=== PATIENT | female | born 1940 | race Caucasian/White ===

== ENCOUNTER 2019-02-10 12:41 | Emergency (ER) | payer MEDICARE ==
[~2019-02-10] VITALS: Ht 162.5 cm; Wt 57.6 kg
[2019-02-10] MEDS ORDERED: NEURONTIN300 MG PO (12:52)
[2019-02-10] MEDS ORDERED: TRAMADOL HCL50 MG PO (12:53)
== END 2019-02-10 14:27 | disposition home or self-care (01) ==
LOC: ED 12:41
DX: S92.355A Nondisplaced fracture of fifth metatarsal bone, left foot, initial encounter for closed fracture (principal); W22.03XA Walked into furniture, initial encounter; Y93.01 Activity, walking, marching and hiking; Y92.89 Other specified places as the place of occurrence of the external cause; Y99.8 Other external cause status

== ENCOUNTER 2020-02-15 10:57 | Inpatient (IN) | payer OTHER ==
[~2020-02-15] VITALS: Ht 160 cm; Wt 47.3 kg
[~2020-02-15 10:57] MED LIST: NEURONTIN300 MG PO; TRAMADOL HCL50 MG PO
[2020-02-15 11:14] VITALS: BP 114/68
[2020-02-15 11:57] LABS: BASO # 0.1 10*3/uL (0.0-0.1); BASO % 0.5 % (0.0-1.0); EOS # 0.1 10*3/uL (0.0-0.4); EOS % 0.4 % (1.0-4.0); HEMATOCRIT 35.5 % (37.0-47.0); LYMPH # 1.2 10*3/uL (1.3-4.4); LYMPH % 7.1 % (27.0-41.0); MEAN CELL VOLUME 88.8 fl (81.0-99.0); MEAN CORPUSCULAR HGB 26.5 pg (27.0-31.0); MEAN CORPUSCULAR HGB CONC 29.9 g/dl (33.0-37.0); MEAN PLATELET VOLUME 9.8 fl (9.6-12.3); MONO # 1.1 10*3/uL (0.1-1.0); MONO % 6.6 % (3.0-9.0); NEUT # 14.5 10*3/uL (2.3-7.9); NEUT % 84.9 % (47.0-73.0); PLATELET COUNT AUTOMATED 525 10*3/uL (130-400); RED CELL DISTRI WIDTH 15.1 % (0-14.5)
[2020-02-15 12:08] LABS: ACT PARTIAL THROMBO TIME 27.9 SECONDS (20.0-32.1); INTERNATIONAL NORM RATIO 1.1 (2.0-3.5)
[2020-02-15 12:13] LABS: ALBUMIN 2.5 gm/dl (3.1-4.5); ALKALINE PHOSPHATASE 97 U/L (45-117); BUN 20 mg/dl (7-24); CHLORIDE 107 mmol/L (98-107); CREATININE 1.28 mg/dL (0.55-1.02); LIPASE 127 U/L (73-393); POTASSIUM 3.9 mmol/L (3.5-5.1); SGOT/AST 10 IU/L (3-35); SGPT/ALT 14 U/L (12-78); SODIUM 136 mmol/L (136-145); TOTAL PROTEIN 7.9 gm/dL (6.4-8.2); TROPONIN I < 0.015 ng/ml (<0.045)
[2020-02-15 12:15] LABS: CPK 34 U/L (26-192)
[2020-02-15 12:17] LABS: CKMB < 1.0 ng/ml (0.5-3.6)
--- NOTE | 2020-02-15 12:36 | NUR ---
pt has attempted to URINATE WITHOUT SUCCESS. SALINE INFUSING PER ORDER. PROVIDER AWARE.
[2020-02-15 13:29] LABS: BILIRUBIN NEGATIVE (NEGATIVE); BLOOD TRACE-INTACT (NEGATIVE); CLARITY CLEAR (CLEAR); COLOR YELLOW (YELLOW); GLUCOSE NEGATIVE (NEGATIVE); KETONE NEGATIVE (NEGATIVE); LEUKO ESTERASE NEGATIVE (NEGATIVE); NITRITE NEGATIVE (NEGATIVE); UROBILINOGEN 0.2 E.U./dl (0.2-1.0)
[2020-02-15 13:30] LABS: BACTERIA 2+; MUCOUS TRACE
[2020-02-15 14:00] VITALS: BP 116/78
--- NOTE | 2020-02-15 15:05 | NUR ---
NURSE REPORT PROVIDED TO ANNA ESTEBAN, FOR CONTINUATION OF CARE. AWAITING PERFORMANCE OF CTA OF CHEST. PT HAS NO VOICED COMPLAINTS. READING A BOOK.
--- NOTE | 2020-02-15 15:28 | NUR ---
PATIENT SITTING UP IN BED EATING MEAL TRAY WITHOUT DIFFICULTY. NO VOICED COMPLAINTS AT THIS TIME. WILL CONITNUE TO MONITOR.
[2020-02-15 18:22] VITALS: BP 120/92
[2020-02-15] MEDS ORDERED: SINEMET 25-1001 EACH PO (18:27)
--- NOTE | 2020-02-15 18:30 | NUR ---
A 79, admitted to , under the services of PATRICK Bailey DO with a diagnosis of UTI, LUNG MASS. Chief complaint is FALL. Patient arrived via stretcher from ER. Monitor applied. Initial assessment completed. Vital signs taken and recorded. PATRICK BAILEY DO notified of admission to the unit. Orders received. See assessment for past medical history, medications and allergies. Patient and/or family oriented to unit. [address] visitation policy reviewed. Clothing/patient valuable form completed. SONYA HIGGINBOTHAM
--- NOTE | 2020-02-15 19:08 | NUR ---
NOTIFIED OF NEW CONSULT.
[2020-02-15 20:00] VITALS: BP 149/94
--- NOTE | 2020-02-15 20:30 | NUR ---
PATIENT AWAKE ALERT TO SELF AND PLACE ONLY. PATIENT STATES SHE KNOWS SHE IS IN THE HOSPITAL BUT ALSO STATES HER DOG, ELEANOR IS IN THE ROOM WITH HER. PATIENT SPEAKING TO HER DOG. WHILE ASSESSING PATIENT, NOTICED PATIENT SKIN TO BE VERY HOT. TEMPERATURE TAKEN ORALLY. 99.1. HR IN THE 130S AT THIS TIME. TEMPERATURE TAKEN RECTALLY. 104.6. NOTIFIED. DR. RIZO. DR. RIZO TO COME SEE PATIENT, COOLING BLANKET AND TYLENOL TO BE ORDERED.
--- NOTE | 2020-02-15 21:03 | NUR ---
DR. RIZO IN ROOM. PRN TYLENOL GIVEN AT THIS TIME. PATIENT NOW ON COOLING BLANKET WITH CONTINOUS RECTAL PROBE IN. RECTAL TEMPERATURE NOW 105. PATIENT PACKED WITH ICE PACKS WELL. HR REMAINS 130S, 140S-150S WITH EXERTION. PATIENT VERY RESTLESS AND DISORIENTED. CONTINUES TO TRY AND CLIMB OUT OF BED. PATIENT VERY WEAK WITH HX OF FALLS. DR. RIZO WANTING PATIENT TO BE A 1:1. LAW OFFICE MANAGER, RODRIGUEZ MADE AWARE. ORDER TO BE PLACED BY DR. RIZO. WILL CONTINUE TO MONITOR.
[2020-02-15 21:15] VITALS: BP 124/60
--- NOTE | 2020-02-15 22:57 | NUR ---
NOTIFIED DR. STEPHENS OF PATIENTS MOST RECENT VITALS. TEMPERATURE DOWN TO 99.2, HR NOW IN THE 90S. TYLENOL AND COOLING BLANKET EFFECTIVE. PATIENT NOW SLEEPING, RESPIRATIONS EASY, NON LABORED. SITTER IN ROOM. BED IN LOWEST POSITION, CALL LIGHT WITHIN REACH. BED ALARM ON. WILL CONTINUE TO MONITOR.
--- NOTE | 2020-02-15 23:22 | NUR ---
PATIENT TEMPERATURE 98.9. COOLING BLANKET TURNED OFF AT THIS TIME. WILL CONTINUE TO MONITOR
[2020-02-16] VITALS: BP 129/98
--- NOTE | 2020-02-16 04:49 | NUR ---
Recheck of patients temp is 97.2(oral)
[2020-02-16 07:10] LABS: BASO # 0.1 10*3/uL (0.0-0.1); BASO % 0.3 % (0.0-1.0); EOS % 0.1 % (1.0-4.0); HEMATOCRIT 35.3 % (37.0-47.0); LYMPH # 1.4 10*3/uL (1.3-4.4); LYMPH % 6.4 % (27.0-41.0); MEAN CELL VOLUME 90.3 fl (81.0-99.0); MEAN CORPUSCULAR HGB 26.3 pg (27.0-31.0); MEAN CORPUSCULAR HGB CONC 29.2 g/dl (33.0-37.0); MEAN PLATELET VOLUME 10.2 fl (9.6-12.3); MONO # 1.2 10*3/uL (0.1-1.0); MONO % 5.4 % (3.0-9.0); NEUT # 19.4 10*3/uL (2.3-7.9); PLATELET COUNT AUTOMATED 489 10*3/uL (130-400); RED BLOOD COUNT 3.91 10*6/uL (4.10-5.10); RED CELL DISTRI WIDTH 15.4 % (0-14.5); WHITE BLOOD COUNT 22.3 10*3/uL (4.8-10.8)
[2020-02-16 07:36] LABS: BUN 15 mg/dl (7-24); CHLORIDE 110 mmol/L (98-107); CHOLESTEROL 100 mg/dL (<200); CREATININE 1.03 mg/dL (0.55-1.02); HDL CHOLESTEROL 25 mg/dl (40-60); LDL CHOLESTEROL 59 mg/dL (9-159); POTASSIUM 3.9 mmol/L (3.5-5.1); SODIUM 140 mmol/L (136-145); TRIGLYCERIDES 81 mg/dl (<150); VLDL CHOLESTEROL 16 mg/dL (6-40)
[2020-02-16 07:54] LABS: VITAMIN D, 25-HYDROXY 25.5 ng/mL (30-100)
[2020-02-16 08:00] VITALS: BP 119/69
[2020-02-16 12:00] VITALS: BP 134/69
[2020-02-16 16:00] VITALS: BP 125/60
--- NOTE | 2020-02-16 18:45 | NUR ---
PT IS SCHEDULED FOR BRONCH TUESDAY ORDERRED BY DR. HAGAN. MESSAGE SENT TO SURGERY, BLOOD THINNERS HELD ORDERRED, AND NPO AFTER [place] TUESDAY NIGHT. PATIENT SIGNED CONSENT.
[2020-02-16 20:00] VITALS: BP 127/65
--- NOTE | 2020-02-16 20:36 | NUR ---
INFORMED THAT AN ORDER FOR IVF AT 100CC/HR IS STILL ACTIVE, WAS NOT INFORMED IN REPORT OF IVF. APPEARS THAT IT WAS ORDER WHEN PATIENT HAD FEVER PRIOR NIGHT AND ONLY ONE BAG WAS GIVEN. INFORMED THAT PATIENT IS EATING AND DRINKING FINE AT THSI TIME. STATED OK TO D/C IVF ORDER.
--- NOTE | 2020-02-16 20:40 | NUR ---
PATIENT MEDICATED WITH ULTRAM FOR C/O BL FEET PAIN 03/14. WILL MONITOR
[2020-02-17] VITALS: BP 130/63
[2020-02-17 06:20] LABS: BASO % 0.4 % (0.0-1.0); EOS # 0.3 10*3/uL (0.0-0.4); EOS % 2.9 % (1.0-4.0); HEMATOCRIT 31.1 % (37.0-47.0); LYMPH # 1.8 10*3/uL (1.3-4.4); MEAN CELL VOLUME 88.4 fl (81.0-99.0); MEAN CORPUSCULAR HGB 26.7 pg (27.0-31.0); MEAN CORPUSCULAR HGB CONC 30.2 g/dl (33.0-37.0); MEAN PLATELET VOLUME 10.2 fl (9.6-12.3); MONO # 0.8 10*3/uL (0.1-1.0); MONO % 8.4 % (3.0-9.0); NEUT # 6.4 10*3/uL (2.3-7.9); NEUT % 68.8 % (47.0-73.0); PLATELET COUNT AUTOMATED 465 10*3/uL (130-400); RED BLOOD COUNT 3.52 10*6/uL (4.10-5.10); RED CELL DISTRI WIDTH 15.4 % (0-14.5); WHITE BLOOD COUNT 9.3 10*3/uL (4.8-10.8)
[2020-02-17 06:40] LABS: CREATININE 1.21 mg/dL (0.55-1.02); POTASSIUM 3.8 mmol/L (3.5-5.1)
[2020-02-17 08:00] VITALS: BP 104/77
--- NOTE | 2020-02-17 08:51 | NUR ---
ULTRAM GIVEN FOR C/O BILAT FOOT PAIN DUE TO NEUROPATHY PER PT. CALL LIGHT IN REACH. WILL MONITOR.
--- NOTE | 2020-02-17 09:51 | NUR ---
ULTRAM EFFECTIVE PER PT.
[2020-02-17 12:00] VITALS: BP 121/65
--- NOTE | 2020-02-17 14:12 | NUR ---
ULTRAM GIVEN FOR C/O BILAT FEET PAIN. CALL LIGHT IN REACH. WILL MONITOR. BED ALARM ON.
--- NOTE | 2020-02-17 14:16 | NUR ---
ASSISTED TO BSC AND BACK TO BED. NOTED WEAKNESS AND POOR ENDURANCE. CALL LIGHT IN REACH. BED ALARM ON.
--- NOTE | 2020-02-17 14:47 | NUR ---
ULTRAM GIVEN FOR COMPLAINTS OF NEUROPATHIC PAIN TO BILAT FEET. CALL LIGHT IN REACH, WILL MONITOR. BED ALARM ON.
--- NOTE | 2020-02-17 14:50 | NUR ---
PER PT, ULTRAM WAS EFFECTIVE.
--- NOTE | 2020-02-17 15:43 | NUR ---
ULTRAM EFFECTIVE PER PT
[2020-02-17 16:00] VITALS: BP 118/51
[2020-02-17 20:00] VITALS: BP 131/65
--- NOTE | 2020-02-17 21:31 | NUR ---
PATIENT MEDICATED WITH ULTRAM FOR COMPLAINTS OF NEUROPATHY PAIN. WILL MONITOR FOR EFFECTIVENESS. CALL LIGHT IN REACH.
--- NOTE | 2020-02-17 23:00 | NUR ---
ULTRAM EFFECTIVE. RESTING IN BED WITH EYES CLOSED. NO SIGNS OR SYMPTOMS OF DISTRESS NOTED. CALL LIGHT IN REACH.
[2020-02-18] VITALS (11 sets, daily range): BP systolic 107–148; BP diastolic 47–83
--- NOTE | 2020-02-18 07:00 | NUR ---
ARRIVED ON SHIFT, REPORT RECEIVED FROM OFF GOING NURSE, ASSUMED CARE OF PATIENT.
--- NOTE | 2020-02-18 07:20 | NUR ---
INTRODUCED SELF TO PATIENT, BED IN LOW POSITION, WHEELLOCKS ENGAGED, SIDE RAILS UP X 2 FOR TURNING AND REPOSITIONING, BED ALARM ON, CALL LIGHT WITHIN REACH. NO NEEDS VOICED AT THIS TIME. WHITE BOARD UPDATED.
--- NOTE | 2020-02-18 07:55 | NUR ---
Shift chart check completed.
--- NOTE | 2020-02-18 08:21 | NUR ---
PHYSICAL THERAPY Screen and PT evaluation received will follow thank you Clarissa Tong PT
--- NOTE | 2020-02-18 14:53 | NUR ---
Road Worker in to talk to patient. Patient states lives at HOME with ALONE. There are NO steps in the home. Physician: PING SHORE [facility]acy: [facility] health [facility]: HAS AID THAT COMES 3 DAYS A WEEK. SHE DOES NOT KNOW COMPANY NAME Patient's level of ADLs: INDEPENDENT Patient has working utilities: YES DME: NORIS Follow-up physician's appointment after d/c: WILL BE MADE BY HOSPITALIST NURSE DIRECTOR ON DISCHARGE Does patient want to access PORTAL?: NO Discharge plan PT LIVES AT HOME ALONE AND IS INDEPENDENT IN HER CARE. ADMITS TO HAVING SOME FALLS AT HOME RECENTLY. TALKED WITH PT ABOUT GOING TO A SNF PRIOR TO RETURNING HOME BUT SHE STATES SHE WILL NOT GO. STATES I WILL NOT LEAVE MY DOG AT HOME. STATES IF YOU WANT TO GET ME PHYSICAL THERAPY AT HOME THAT WOULD BE FINE BUT I AM NOT GOING ANYWHERE. STATES SHE WILL RETURN HOME WHEN MEDICALLY STABLE. WILL CONTINUE TO FOLLOW. STATES HER DAUGHTER WILL TAKE HER HOME.. GEE FREY
--- NOTE | 2020-02-18 19:35 | NUR ---
24 HR chart check completed.
--- NOTE | 2020-02-18 20:16 | NUR ---
RECTAL TEMP OF 100.5. TYLENOL 650MG PO ADMINISTERED.
--- NOTE | 2020-02-18 23:49 | NUR ---
ULTRAM ADMINISTERED FOR PT C/O BILATERAL FOOT PAIN RATED AN 8/10 ON THE PAIN SCALE. PATIENT DESCRIBES THE PAIN "BURNING". GOOD PEDAL PULSES TO BOTH FEET ON ASSESSMENT, NO EDEMA NOTED. WILL CONTINUE TO MONITOR AND REASSESS.
[2020-02-19] VITALS: BP 143/68
--- NOTE | 2020-02-19 00:30 | NUR ---
PT RESTING AT THIS TIME. RESPIRATIONS EASY AND NONLABORED. NO SIGNS OF DISCOMFORT OR DISTRESS NOTED. ULTRAM APPEARS TO BE EFFECTIVE. WILL CONTINUE TO MONITOR.
--- NOTE | 2020-02-19 02:42 | NUR ---
24 HOUR CHART CHECK COMPLETE.
[2020-02-19 07:20] LABS: BASO # 0.1 10*3/uL (0.0-0.1); BASO % 0.7 % (0.0-1.0); EOS # 0.2 10*3/uL (0.0-0.4); EOS % 2.8 % (1.0-4.0); HEMATOCRIT 32.1 % (37.0-47.0); LYMPH # 1.6 10*3/uL (1.3-4.4); LYMPH % 21.8 % (27.0-41.0); MEAN CELL VOLUME 87.2 fl (81.0-99.0); MEAN CORPUSCULAR HGB 25.8 pg (27.0-31.0); MEAN CORPUSCULAR HGB CONC 29.6 g/dl (33.0-37.0); MEAN PLATELET VOLUME 9.4 fl (9.6-12.3); MONO # 0.6 10*3/uL (0.1-1.0); MONO % 8.4 % (3.0-9.0); NEUT # 4.7 10*3/uL (2.3-7.9); NEUT % 65.7 % (47.0-73.0); PLATELET COUNT AUTOMATED 467 10*3/uL (130-400); RED BLOOD COUNT 3.68 10*6/uL (4.10-5.10); RED CELL DISTRI WIDTH 15.4 % (0-14.5); WHITE BLOOD COUNT 7.2 10*3/uL (4.8-10.8)
[2020-02-19 07:35] LABS: CREATININE 1.22 mg/dL (0.55-1.02); POTASSIUM 3.6 mmol/L (3.5-5.1)
--- NOTE | 2020-02-19 08:16 | NUR ---
PATIENT C/O BILAT FEET PAIN AT THIS TIME AND MEDICATED WITH ULTRAM PER ORDER. WILL MONITOR FOR EFFECTIVENESS.
--- NOTE | 2020-02-19 09:16 | NUR ---
PER PATIENT, ULTRAM HAS BEEN EFFECTIVE. NO FURTHER COMPLAINTS AT THIS TIME.
[2020-02-19] MEDS ORDERED: DOXYCYCLINE100 M3 PO (10:17)
[2020-02-19] MEDS ORDERED: LEVAQUIN750 M1 PO (11:30)
[2020-02-19 11:56] VITALS: BP 127/71
[2020-02-19 12:07] LABS: ACID FAST SPEC PROCESSING Concentration (.)
--- NOTE | 2020-02-19 12:22 | NUR ---
case management faxed patient's order for home health to [facility], spoke to Jenn at [facility] and informed her patient is being discharged today
--- NOTE | 2020-02-19 12:36 | NUR ---
Discharge instructions reviewed with patient/family. Patient receptive and verbalizes understanding. Follow-up care arranged. Written instructions given to patient/family. HEPLOCK DISCONTINUED. PT TAKEN OFF FLOOR VIA WHEELCHAIR. PICKED UP BY DAUGHTER. KELTON BULLARD
--- NOTE | 2020-02-19 13:30 | NUR ---
[facility] NOT IN CONTRACT WITH PT INSURANCE. CALLED [facility] AND THEY DO TAKE PT INSURANCE. REFERRAL SENT TO [facility].
== END 2020-02-19 13:35 | disposition home health service (06) | DRG 871 ==
LOC: ED 10:57 → EDHOLD 15:40 → ED 15:40 → 4E 16:55 → EDHOLD 16:55 → 4E 17:40
PROVIDERS: Internal Medicine; Internal Medicine Critical Care Medicine; Physician Assistant; ADMIT Internal Medicine
PROC: 0BB68ZX Excision of Right Lower Lobe Bronchus, Via Natural or Artificial Opening Endoscopic, Diagnostic (ICD-10-PCS; principal; 2020-02-18)
DX: A41.9 Sepsis, unspecified organism (principal); E43 Unspecified severe protein-calorie malnutrition; J18.8 Other pneumonia, unspecified organism; G91.2 (Idiopathic) normal pressure hydrocephalus; N17.9 Acute kidney failure, unspecified; Z68.1 Body mass index [BMI] 19.9 or less, adult; N30.01 Acute cystitis with hematuria; R91.8 Other nonspecific abnormal finding of lung field; D47.3 Essential (hemorrhagic) thrombocythemia; F17.210 Nicotine dependence, cigarettes, uncomplicated; N18.3 Chronic kidney disease, stage 3 (moderate); G20 Parkinson's disease; D64.9 Anemia, unspecified; R82.71 Bacteriuria; M19.90 Unspecified osteoarthritis, unspecified site; G62.9 Polyneuropathy, unspecified; E86.0 Dehydration; R63.4 Abnormal weight loss; R55 Syncope and collapse; Z79.899 Other long term (current) drug therapy; Z90.710 Acquired absence of both cervix and uterus; Z71.6 Tobacco abuse counseling; Z90.722 Acquired absence of ovaries, bilateral

== ENCOUNTER 2020-02-23 16:59 | Emergency (ER) | payer OTHER ==
[~2020-02-23] VITALS: Ht 160 cm; Wt 52.2 kg
[~2020-02-23 16:59] MED LIST changes: +DOXYCYCLINE100 M3 PO; +LEVAQUIN750 M1 PO; +SINEMET 25-1001 EACH PO
[2020-02-23 18:06] LABS: BASO % 0.3 % (0.0-1.0); EOS # 0.1 10*3/uL (0.0-0.4); EOS % 0.6 % (1.0-4.0); HEMATOCRIT 34.6 % (37.0-47.0); LYMPH # 0.9 10*3/uL (1.3-4.4); LYMPH % 8.4 % (27.0-41.0); MEAN CORPUSCULAR HGB 26.2 pg (27.0-31.0); MEAN CORPUSCULAR HGB CONC 29.8 g/dl (33.0-37.0); MONO # 0.7 10*3/uL (0.1-1.0); MONO % 6.5 % (3.0-9.0); NEUT % 82.6 % (47.0-73.0); PLATELET COUNT AUTOMATED 500 10*3/uL (130-400); RED BLOOD COUNT 3.93 10*6/uL (4.10-5.10); RED CELL DISTRI WIDTH 15.8 % (0-14.5); WHITE BLOOD COUNT 10.8 10*3/uL (4.8-10.8)
[2020-02-23 18:16] LABS: CREATININE 1.53 mg/dL (0.55-1.02); POTASSIUM 3.7 mmol/L (3.5-5.1)
[2020-02-23 18:20] LABS: ACT PARTIAL THROMBO TIME 26.8 SECONDS (20.0-32.1); INTERNATIONAL NORM RATIO 1.1 (2.0-3.5)
== END 2020-02-23 19:42 | disposition short-term general hospital (02) ==
LOC: ED 16:59
PROVIDERS: Emergency Medicine
DX: S72.001A Fracture of unspecified part of neck of right femur, initial encounter for closed fracture (principal); N18.3 Chronic kidney disease, stage 3 (moderate); Z79.899 Other long term (current) drug therapy; W19.XXXA Unspecified fall, initial encounter; Y93.89 Activity, other specified; Y92.89 Other specified places as the place of occurrence of the external cause; Y99.8 Other external cause status

== ENCOUNTER 2020-03-19 21:32 | Observation (INO) | payer OTHER ==
[~2020-03-19] VITALS: Ht 160 cm; Wt 48.3 kg
[2020-03-19 21:36] VITALS: BP 141/72
[2020-03-20] VITALS (7 sets, daily range): BP systolic 127–166; BP diastolic 59–94
[2020-03-20 00:14] LABS: BASO % 0.3 % (0.0-1.0); EOS # 0.1 10*3/uL (0.0-0.4); EOS % 0.8 % (1.0-4.0); HEMATOCRIT 34.8 % (37.0-47.0); LYMPH # 1.6 10*3/uL (1.3-4.4); LYMPH % 20.2 % (27.0-41.0); MEAN CELL VOLUME 89.2 fl (81.0-99.0); MEAN CORPUSCULAR HGB 25.9 pg (27.0-31.0); MEAN PLATELET VOLUME 10.2 fl (9.6-12.3); MONO # 0.9 10*3/uL (0.1-1.0); MONO % 10.9 % (3.0-9.0); NEUT # 5.3 10*3/uL (2.3-7.9); NEUT % 67.7 % (47.0-73.0); PLATELET COUNT AUTOMATED 281 10*3/uL (130-400); RED CELL DISTRI WIDTH 16.9 % (0-14.5); WHITE BLOOD COUNT 7.9 10*3/uL (4.8-10.8)
[2020-03-20 00:29] LABS: ALBUMIN 2.8 gm/dl (3.1-4.5); ALKALINE PHOSPHATASE 118 U/L (45-117); BUN 27 mg/dl (7-24); CHLORIDE 103 mmol/L (98-107); CREATININE 1.35 mg/dL (0.55-1.02); SGOT/AST 24 IU/L (3-35); SGPT/ALT < 6 U/L (12-78); SODIUM 134 mmol/L (136-145); TOTAL PROTEIN 7.4 gm/dL (6.4-8.2)
[2020-03-20 00:45] LABS: BILIRUBIN NEGATIVE (NEGATIVE); BLOOD TRACE-INTACT (NEGATIVE); CLARITY CLEAR (CLEAR); COLOR YELLOW (YELLOW); GLUCOSE NEGATIVE (NEGATIVE); KETONE NEGATIVE (NEGATIVE); LEUKO ESTERASE 1+ (NEGATIVE); NITRITE NEGATIVE (NEGATIVE); SPECIFIC GRAVITY 1.015 (1.005-1.030); UROBILINOGEN 0.2 E.U./dl (0.2-1.0)
[2020-03-20 01:06] LABS: BACTERIA 2+; WBC 21-30 wbc/hpf (0-5)
[2020-03-20] MEDS ORDERED: LEADER ASPIRIN325 MG PO (06:49)
[2020-03-20 06:56] LABS: BASO % 0.3 % (0.0-1.0); EOS # 0.1 10*3/uL (0.0-0.4); EOS % 0.8 % (1.0-4.0); HEMATOCRIT 33.2 % (37.0-47.0); LYMPH # 0.9 10*3/uL (1.3-4.4); LYMPH % 13.8 % (27.0-41.0); MEAN CELL VOLUME 88.8 fl (81.0-99.0); MEAN CORPUSCULAR HGB 26.7 pg (27.0-31.0); MEAN CORPUSCULAR HGB CONC 30.1 g/dl (33.0-37.0); MEAN PLATELET VOLUME 10.7 fl (9.6-12.3); MONO # 0.8 10*3/uL (0.1-1.0); MONO % 11.8 % (3.0-9.0); NEUT # 4.6 10*3/uL (2.3-7.9); NEUT % 72.8 % (47.0-73.0); PLATELET COUNT AUTOMATED 246 10*3/uL (130-400); RED BLOOD COUNT 3.74 10*6/uL (4.10-5.10); WHITE BLOOD COUNT 6.4 10*3/uL (4.8-10.8)
[2020-03-20 07:07] LABS: CREATININE 1.3 mg/dL (0.55-1.02); POTASSIUM 3.8 mmol/L (3.5-5.1)
[2020-03-21] VITALS: BP 158/80; BP 177/83
[2020-03-21 06:49] LABS: BASO % 0.3 % (0.0-1.0); EOS % 0.3 % (1.0-4.0); HEMATOCRIT 33.7 % (37.0-47.0); LYMPH # 1.2 10*3/uL (1.3-4.4); MEAN CELL VOLUME 87.8 fl (81.0-99.0); MEAN CORPUSCULAR HGB 25.8 pg (27.0-31.0); MEAN CORPUSCULAR HGB CONC 29.4 g/dl (33.0-37.0); MONO # 0.9 10*3/uL (0.1-1.0); NEUT # 4.3 10*3/uL (2.3-7.9); NEUT % 65.8 % (47.0-73.0); PLATELET COUNT AUTOMATED 269 10*3/uL (130-400); RED BLOOD COUNT 3.84 10*6/uL (4.10-5.10); RED CELL DISTRI WIDTH 16.8 % (0-14.5); WHITE BLOOD COUNT 6.5 10*3/uL (4.8-10.8)
[2020-03-21 07:14] LABS: POTASSIUM 4.6 mmol/L (3.5-5.1)
[2020-03-21 07:17] LABS: CREATININE 1.19 mg/dL (0.55-1.02)
[2020-03-21 08:00] VITALS: BP 162/76
[2020-03-21 12:00] VITALS: BP 150/86
[2020-03-21 16:00] VITALS: BP 148/68
[2020-03-21 20:00] VITALS: BP 158/84
[2020-03-22] VITALS: BP 160/88
[2020-03-22 08:00] VITALS: BP 147/85
[2020-03-22] MEDS ORDERED: AMPICILLIN500 MG PO (09:28)
[2020-03-22 12:00] VITALS: BP 132/76
== END 2020-03-22 14:19 | disposition home or self-care (01) ==
LOC: ED 21:32 → EDHOLD 03-20 02:36 → 5E 03-20 02:36
PROVIDERS: Emergency Medicine; Internal Medicine; ADMIT Internal Medicine
DX: N39.0 Urinary tract infection, site not specified (principal); E86.0 Dehydration; E87.1 Hypo-osmolality and hyponatremia; G91.2 (Idiopathic) normal pressure hydrocephalus; D64.9 Anemia, unspecified; F17.210 Nicotine dependence, cigarettes, uncomplicated; E43 Unspecified severe protein-calorie malnutrition; G20 Parkinson's disease; I12.9 Hypertensive chronic kidney disease with stage 1 through stage 4 chronic kidney disease, or unspecified chronic kidney disease; N18.3 Chronic kidney disease, stage 3 (moderate); G62.9 Polyneuropathy, unspecified; M19.90 Unspecified osteoarthritis, unspecified site; R50.9 Fever, unspecified; R06.82 Tachypnea, not elsewhere classified; R00.0 Tachycardia, unspecified; R91.8 Other nonspecific abnormal finding of lung field; A41.9 Sepsis, unspecified organism; E87.8 Other disorders of electrolyte and fluid balance, not elsewhere classified; I71.4 Abdominal aortic aneurysm, without rupture

== ENCOUNTER 2020-05-02 11:48 | Inpatient (IN) | payer OTHER ==
[~2020-05-02] VITALS: Ht 180.3 cm; Wt 42.7 kg
[~2020-05-02 11:48] MED LIST changes: +AMPICILLIN500 MG PO; +LEADER ASPIRIN325 MG PO
[2020-05-02 11:49] VITALS: BP 140/72
--- NOTE | 2020-05-02 12:43 | NUR ---
PATIENTS DAUGHTER, JOEY WILDER CONTACTED THE ED TO INFORM THE STAFF THAT WHEN SHE WAS GOING THROUGH HER MOTHERS MEDICATION SHE DISCOVERED THAT THERE WAS APPROX 50 MISSING TRAMADOL OUT OF HER BOTTLE. DAUGHTER STATED THAT THE AIDE DID FIND "SOME" OF THE MEDICATION IN HER CHAIR.
[2020-05-02 12:56] LABS: BASO % 0.8 % (0.0-1.0); EOS # 0.1 10*3/uL (0.0-0.4); EOS % 2.3 % (1.0-4.0); HEMATOCRIT 38.5 % (37.0-47.0); LYMPH # 1.4 10*3/uL (1.3-4.4); LYMPH % 25.8 % (27.0-41.0); MEAN CELL VOLUME 87.7 fl (81.0-99.0); MEAN CORPUSCULAR HGB 25.3 pg (27.0-31.0); MEAN CORPUSCULAR HGB CONC 28.8 g/dl (33.0-37.0); MEAN PLATELET VOLUME 10.7 fl (9.6-12.3); MONO # 0.6 10*3/uL (0.1-1.0); MONO % 10.5 % (3.0-9.0); NEUT # 3.2 10*3/uL (2.3-7.9); NEUT % 60.2 % (47.0-73.0); PLATELET COUNT AUTOMATED 316 10*3/uL (130-400); RED BLOOD COUNT 4.39 10*6/uL (4.10-5.10); RED CELL DISTRI WIDTH 16.4 % (0-14.5); WHITE BLOOD COUNT 5.2 10*3/uL (4.8-10.8)
[2020-05-02 13:11] LABS: ALBUMIN 3.1 gm/dl (3.1-4.5); ALKALINE PHOSPHATASE 103 U/L (45-117); BUN 23 mg/dl (7-24); CHLORIDE 101 mmol/L (98-107); CREATININE 1.34 mg/dL (0.55-1.02); SGOT/AST 12 IU/L (3-35); SODIUM 137 mmol/L (136-145); TOTAL PROTEIN 7.6 gm/dL (6.4-8.2)
[2020-05-02 13:15] LABS: SGPT/ALT < 6 U/L (12-78)
[2020-05-02 13:20] VITALS: BP 125/72
--- NOTE | 2020-05-02 13:21 | NUR ---
MARIELLA IS RESTING AT THIS TIME IN BED. NO COMPLAINTS. CALL LIGHT WITHIN REACH.
--- NOTE | 2020-05-02 13:40 | NUR ---
AFTER SEVERAL ATTEMPTS ASSISTING THE PATIENT ON TO THE BED LOUIS TO COLLECT A URINE SPECEMIN IT HAS BEEN UNSUCCESSFUL. PATIENT REFUSING URINARY CATHETERIZATION.
[2020-05-02 15:13] VITALS: BP 121/64
--- NOTE | 2020-05-02 15:30 | NUR ---
PATIENT WAS ABLE TO PROVIDE A URINE SAMPLE. RESTING IN BED AT THIS TIME WATCHING TELEVISION. CALL LIGHT WITHIN REACH. NO COMPLAINTS AT THIS TIME.
[2020-05-02 15:50] LABS: BILIRUBIN NEGATIVE; BLOOD NEGATIVE (NEGATIVE); CLARITY CLEAR (CLEAR); COLOR YELLOW (YELLOW); GLUCOSE NEGATIVE; KETONE NEGATIVE; LEUKO ESTERASE TRACE (NEGATIVE); NITRITE NEGATIVE (NEGATIVE)
[2020-05-02 17:40] VITALS: BP 146/75
--- NOTE | 2020-05-02 17:55 | NUR ---
A 79, admitted to , under the services of SHAWN Portillo DO with a diagnosis of UTI, INABILITY TO PREFORM ADL'S. Chief complaint is FALL. Patient arrived via wheel chair from ER. Monitor applied. Initial assessment completed. Vital signs taken and recorded. SHAWN PORTILLO DO notified of admission to the unit. Orders received. See assessment for past medical history, medications and allergies. Patient and/or family oriented to unit. [address] visitation policy reviewed. Clothing/patient valuable form completed. JOSEPH WOODY
[2020-05-02 18:20] VITALS: BP 156/76
[2020-05-02 20:00] VITALS: BP 144/87
--- NOTE | 2020-05-02 20:00 | NUR ---
PATIENT LYING IN BED. NO COMPLAINTS AT THIS TIME. PATIENT IS REQUESTING HER NIGHTTIME MEDICINE. NOTIFIED RESIDENT CRAYON SORTING MACHINE FEEDER THAT PATIENT'S MED REC WAS UP TO DATE AND HE STATED HE WOULD TAKE A LOOK AND CONTINUE MEDICATIONS NEEDED. RESPIRATIONS ARE EASY, REGULAR, NONLABORED. CALL LIGHT IS WITHIN REACH WITH BED ALARM ON.
--- NOTE | 2020-05-02 21:03 | NUR ---
ULTRAM GIVEN PER PATIENT REQUEST FOR COMPLAINTS OF PAIN RATED 7/10. WILL ASSESS EFFECTIVENESS.
--- NOTE | 2020-05-02 21:34 | NUR ---
DAUGHTER CALLED IN FOR AN UPDATE ON PATIENT. SHE STATED SHE NOTICED THERE HAD BEEN MISSING TRAMADOL FROM THE PATIENT'S HOME MEDICATION BOTTLE AND SHE WAS WORRIED THAT HER MOTHER HAD TAKEN EXTRA AND FORGOT THAT SHE WAS TAKING THEM. DAUGHTER ALSO STATED THAT THE PATIENT WAS SUPPOSE TO GO TO [facility] PER HER NEUROLOGIST ON Tuesday TO GET AN MRI OF THE BRAIN/NECK BECAUSE HER NEUROLOGIST WAS CONCERNED THERE WAS WATER ON THE PATIENT'S BRAIN. DAUGHTER STATED AN EEG AND LABWORK WAS ALSO SUPPOSE TO BE DONE ON . DAUGHTER ASKED IF I COULD RELAY THIS INFORMATION TO THE RESIDENT/DOCTOR TAKING CARE OF HER MOTHER. I TOLD HER I WOULD RELAY THIS TO THE RESIDENT. NO FURTHER CONCERNS OR QUESTIONS.
--- NOTE | 2020-05-02 21:40 | NUR ---
NOTIFIED DR BARBOSA ABOUT PATIENT'S OUTPAITENT MRI HEAD/NECK THAT WAS SUPPOSE TO BE DONE NEXT TUESDAY, . HE STATED TO GET MEDICAL RECORDS FROM [facility]. WILL TRY TO OBTAIN MEDICAL RECORDS.
--- NOTE | 2020-05-02 22:00 | NUR ---
ULTRAM EFFECTIVE PER PATIENT. WILL CONTINUE TO MONITOR.
--- NOTE | 2020-05-02 22:15 | NUR ---
SPOKE WITH [facility] THEY STATED THEY CANNOT GET THE PATIENT'S MEDICAL RECORDS UNTIL TUESDAY. NOTIFIED THE RESIDENT PRINTING MACHINE OPERATOR TAPE RULES. HE STATED THAT WE SHOULD NOT NEED TO GET THE MEDICAL RECORDS ANY LONGER.
[2020-05-03] VITALS: BP 153/77; BP 174/76
--- NOTE | 2020-05-03 05:28 | NUR ---
NOTIFIED DR SILVA THAT PATIENT NEEDED WOUND CARE ORDERS. SHE STATED TO PUT A BAND-AID ON IT.
[2020-05-03 05:36] LABS: ACT PARTIAL THROMBO TIME 25.8 SECONDS (20.0-32.1)
[2020-05-03 05:43] LABS: ALBUMIN 2.6 gm/dl (3.1-4.5); ALKALINE PHOSPHATASE 89 U/L (45-117); BUN 20 mg/dl (7-24); CHLORIDE 108 mmol/L (98-107); CREATININE 1.12 mg/dL (0.55-1.02); POTASSIUM 3.8 mmol/L (3.5-5.1); SGOT/AST 11 IU/L (3-35); SODIUM 139 mmol/L (136-145); TOTAL PROTEIN 6.7 gm/dL (6.4-8.2)
[2020-05-03 05:45] LABS: SGPT/ALT < 6 U/L (12-78)
[2020-05-03 06:19] LABS: BASO % 0.7 % (0.0-1.0); EOS # 0.3 10*3/uL (0.0-0.4); HEMATOCRIT 33.9 % (37.0-47.0); LYMPH # 1.8 10*3/uL (1.3-4.4); MEAN CELL VOLUME 87.1 fl (81.0-99.0); MEAN CORPUSCULAR HGB 25.2 pg (27.0-31.0); MEAN CORPUSCULAR HGB CONC 28.9 g/dl (33.0-37.0); MEAN PLATELET VOLUME 11.3 fl (9.6-12.3); MONO # 0.5 10*3/uL (0.1-1.0); MONO % 10.2 % (3.0-9.0); NEUT % 42.9 % (47.0-73.0); PLATELET COUNT AUTOMATED 302 10*3/uL (130-400); RED BLOOD COUNT 3.89 10*6/uL (4.10-5.10); RED CELL DISTRI WIDTH 16.2 % (0-14.5); WHITE BLOOD COUNT 4.5 10*3/uL (4.8-10.8)
[2020-05-03 06:49] LABS: VITAMIN D, 25-HYDROXY 33.8 ng/mL (30-100)
[2020-05-03 08:00] VITALS: BP 147/86
--- NOTE | 2020-05-03 08:00 | NUR ---
Patient resting quietly with no c/o discomfort. Respirations easy and regular. Vital signs stable. No overt distress. NAILA CANO
--- NOTE | 2020-05-03 08:37 | NUR ---
Payroll Tax Specialist in to talk to patient. Patient states lives at home with alone. There are no steps in the home. Physician: oscar ferreira Pharmacy: [facility] Home health services: Patient's level of ADLs: MODERATE ASSIST Patient has working utilities: all working DME: cane,walker Follow-up physician's appointment after d/c: will be made by hospitalist nurse director upon discharge Does patient want to access PORTAL?: no Discharge plan discussed with patient, she states she lives in an apartment with her dog, she uses a cane or walker for ambulation, she has aids from 3 days a week for one hour a day, she has meals delivered from [employer]. she states her daughter lives nearby by works. discussed with her having falls at home and going to a short term correction, educated her she would receive 24 hour care and 5 days of therapy. she stated she didn't want to leave her dog. educated her that a short term skilled is not silver lap machine tender, just until she was able to safely return home, also discussed if her daughter could care for her dog while she was in a SNf. she stated her daughter would not care for the dog but her neighbor would, patient was given a list of area correction facilities. she stated she wanted to discuss this with her daughter, case managment asked if I could contact her daughter regarding the SNF decision, she stated her daughter was working today and she would like to discuss this with her herself. patient will need an insurance precert and physical therapy and occupational therapy evaluations prior to the precert, also spoke with patient's nurse regarding obtaining a covid order. case management will follow. ROSALES HAMILTON
[2020-05-03 12:00] VITALS: BP 145/69
--- NOTE | 2020-05-03 13:36 | NUR ---
ASSISTED PATIENT OOB UP TO BSC. PATIENT VOIDED WITHOUT DIFFICULTY. UNSTEADY GAIT. WILL MONITOR. PT ASSISTED BACK TO BED. ALARM MAINTAINED FOR SAFETY. WILL CONTINUE TO MONITOR. CALL LIGHT WITHIN REACH.
[2020-05-03 16:00] VITALS: BP 143/78
--- NOTE | 2020-05-03 19:45 | NUR ---
ASSUMED CARE FOR PT AT THIS TIME, NO DISTRESS NOTED. CALL LIGHT WITHIN REACH.
[2020-05-03 20:00] VITALS: BP 139/63
--- NOTE | 2020-05-03 21:08 | NUR ---
24 HR chart check completed.
[2020-05-03 22:43] VITALS: BP 166/88
[2020-05-04 05:48] LABS: CREATININE 1.21 mg/dL (0.55-1.02); POTASSIUM 4.1 mmol/L (3.5-5.1)
[2020-05-04 06:05] LABS: BASO % 0.8 % (0.0-1.0); EOS # 0.3 10*3/uL (0.0-0.4); EOS % 5.1 % (1.0-4.0); HEMATOCRIT 37.8 % (37.0-47.0); LYMPH # 1.3 10*3/uL (1.3-4.4); LYMPH % 26.3 % (27.0-41.0); MEAN CELL VOLUME 88.5 fl (81.0-99.0); MEAN CORPUSCULAR HGB 25.1 pg (27.0-31.0); MEAN CORPUSCULAR HGB CONC 28.3 g/dl (33.0-37.0); MEAN PLATELET VOLUME 11.3 fl (9.6-12.3); MONO # 0.4 10*3/uL (0.1-1.0); MONO % 7.7 % (3.0-9.0); NEUT # 2.9 10*3/uL (2.3-7.9); NEUT % 59.9 % (47.0-73.0); PLATELET COUNT AUTOMATED 322 10*3/uL (130-400); RED BLOOD COUNT 4.27 10*6/uL (4.10-5.10); RED CELL DISTRI WIDTH 16.4 % (0-14.5); WHITE BLOOD COUNT 4.9 10*3/uL (4.8-10.8)
[2020-05-04 08:00] VITALS: BP 164/94
--- NOTE | 2020-05-04 08:21 | NUR ---
IN TO SEE PATIENT AND NOTIFIED REGARDING BP THIS AM 164/94. NEW ORDERS TO BE ENTERED PER PHYSICIAN.
--- NOTE | 2020-05-04 10:00 | NUR ---
ASSISTED PATIENT OOB UP TO BSC. VOIDED WITHOUT DIFFICULTY. WILL CONTINUE TO MONITOR. PT ASSISTED BACK INTO BED AND REPOSITIONED FOR COMFORT. BED ALARM MAINTAINED FOR SAFETY. CALL LIGHT WITHIN REACH.
--- NOTE | 2020-05-04 10:05 | NUR ---
PT REQUESTED AND RECEIVED PO ULTRAM PER PRN ORDER FOR C/O BILATERAL FOOT PAIN. RATES PAIN 8/10. PT REPORTS NEUROPATHY. WILL MONITOR EFFECTIVENESS. CALL LIGHT WITHIN REACH.
--- NOTE | 2020-05-04 11:05 | NUR ---
ULTRAM RELIEVING PAIN PER PT. WILL CONTINUE TO MONITOR.
[2020-05-04 12:00] VITALS: BP 140/72
--- NOTE | 2020-05-04 14:32 | NUR ---
PT REQUESTED AND RECEIVED PO ULTRAM PER PRN ORDER FOR C/O RIGHT HIP PAIN. RATES PAIN 10. WILL MONITOR EFFECTIVENESS.
--- NOTE | 2020-05-04 15:30 | NUR ---
PT STATES ULTRAM WAS EFFECTIVE
[2020-05-04 16:00] VITALS: BP 141/75
--- NOTE | 2020-05-04 17:31 | NUR ---
SPOKE TO PT DAUGHTER REGARDING ON PHONE
--- NOTE | 2020-05-04 17:33 | NUR ---
SPOKE TO DR STEPHENS REGARDING DAUGHTER WANTING AN EEG AND MRI OF THE HEAD AND NECK DONE PER PT ELECTRIC ORGAN ASSEMBLER. HE STATES THAT IT WILL HAVE TO BE DONE OUTPATIENT NOT DURING HER STAY HERE
[2020-05-04 20:00] VITALS: BP 148/73
--- NOTE | 2020-05-04 20:54 | NUR ---
PT REQUESTING ULTRAM FOR PAIN, 4/ TO BLE. REPOSITIONED TO LITTLE EFFECT. SEE EMAR.
--- NOTE | 2020-05-04 21:30 | NUR ---
PT REPORTS ULTRAM EFFECTIVE, RESTING IN BED. NO DISTRESS NOTED, RESP EASY AND NONLABORED ON ROOM AIR. CALL LIGHT WITHIN REACH.
--- NOTE | 2020-05-04 23:45 | NUR ---
PT ASSISTED UP TO BSC AND BACK TO BED. RESP-EASY AND REGULAR. NO C/O AT THIS TIME. CALL LIGHT IN REACH. SEE SHIFT ASSESSMENT. BED ALARM ON.
[2020-05-05] VITALS: BP 156/76
--- NOTE | 2020-05-05 04:00 | NUR ---
SLEEPING IN BED. RESP-EASY AND REGULAR. CALL LIGHT IN REACH.
--- NOTE | 2020-05-05 05:30 | NUR ---
TOLERATED ROUTINE AM MED WITH NO PROBLEM. NO C/O AT THIS TIME. CALL LIGHT IN REACH. BED ALARM ON.
[2020-05-05 06:41] LABS: CREATININE 1.13 mg/dL (0.55-1.02); POTASSIUM 3.4 mmol/L (3.5-5.1)
--- NOTE | 2020-05-05 07:23 | NUR ---
IN TO COMPLETE ASSESSMENT BUT PT IS SLEEPING. SHE APPEARS TO BE IN NO PAIN AND HAS EASY AND REGULAR RESPIRATIONS. CALL LIGHT IS WITHIN REACH OF THE PATIENT. WILL ASSESS PT ONCE SHE IS AWAKE
--- NOTE | 2020-05-05 07:50 | NUR ---
Nursing screen and occupational therapy order received. Will follow up with patient for completion of an OT evaluation. Thank you. Christianne Terrell, OTR/L
[2020-05-05 08:00] VITALS: BP 151/82
--- NOTE | 2020-05-05 08:07 | NUR ---
PHYSICAL THERAPY Screen and PT orders received, will follow. Thank you. Jori Oliveira SPT Clarissa Tong PT
--- NOTE | 2020-05-05 09:00 | NUR ---
case management visits with patient, again discussed with her a short term mcc prior to returning home and asked if she had discussed this with her daughter and chose a facility, she stated she did not, asked if case management could speak to her daughter and patient was agreeable, sales planner will contact patient's daughter
[2020-05-05 12:00] VITALS: BP 100/51
--- NOTE | 2020-05-05 12:31 | NUR ---
Called patients daughter with patients permission to discuss discharge planning. Daughter states please do not use the term residential or assisted around patient. Only use the term rehab. She said patient has multiple services at home including [employer] with a nurse 2 to 3 times a week through [facility], PT/OT 3 times per week, and aides comes in 2 to 3 hours a day 3 days a week and they're going to increase the hours/days. She has her meals delivered from [employer] and also has private pay staff that will come in a few hours a week to assist patient when needed. However, daughter stating patient needs to go to rehab for a few weeks and get stronger prior to returning home. She has falling too many times. I explained to her that the patient will not give CM a facility and went over the local list with her. She asked for a referral to [facility]. Contacted [facility] and faxed initial referral, waiting on PT/OT evals. Covid test was negative.
--- NOTE | 2020-05-05 12:35 | NUR ---
PHYSICAL THERAPY Physical Therapy evaluation completed on 4th floor with full evaluation to follow. Recommend physical therapy per plan of care and SNF upon discharge. Thank you for this referral. Clarissa Tong PT
--- NOTE | 2020-05-05 12:45 | NUR ---
Occupational Therapy evaluation completed on four with full evaluation to follow. Recommend occupational therapy per plan of care and SNF upon discharge. Thank you for this referral. Christianne Terrell OTR/L
--- NOTE | 2020-05-05 12:57 | NUR ---
PT/OT IN WITH PATIENT
[2020-05-05 16:00] VITALS: BP 133/73
--- NOTE | 2020-05-05 16:59 | NUR ---
ON PHONE WITH PATIENT DAUGHTER
[2020-05-05 20:00] VITALS: BP 129/73
--- NOTE | 2020-05-05 21:58 | NUR ---
PT C/O RIGHT HIP PAIN, RATES PAIN 5 ON PAIN SCALE 0-10. MEDICATED WITH ULTRAM PO PER PRN ORDER, SEE EMAR. CALL LIGHT IN REACH. SEE SHIFT ASSESSMENT.
--- NOTE | 2020-05-05 22:40 | NUR ---
PT RESTING IN BED. STATES PAIN MEDICATION HELPED. NO C/O AT THIS TIME. CALL LIGHT IN REACH. BED ALARM ON.
--- NOTE | 2020-05-05 23:11 | NUR ---
MEDICATED WITH RESTORIL PO PER PRN ORDER, SEE EMAR. FOR INSOMINA PER PT REQUEST. CALL LIGHT IN REACH. BED ALARM ON.
[2020-05-06] VITALS: BP 158/78
--- NOTE | 2020-05-06 00:10 | NUR ---
PT RESTING IN BED WITH EYES CLOSED. RESP-EASY AND REGULAR. MEDICATION SEEMS TO BE EFFECTIVE. CALL LIGHT IN REACH. SEE SHIFT ASSESSMENT.
--- NOTE | 2020-05-06 06:00 | NUR ---
TOLERATED ROUTINE MED WITH NO PROBLEM. NO C/O AT THIS TIME. CALL LIGHT IN REACH.
--- NOTE | 2020-05-06 07:41 | NUR ---
Faxed PT/OT evals to complete referral. Waiting on review/acceptance. Will require precert if accepted.
[2020-05-06 08:00] VITALS: BP 160/82
--- NOTE | 2020-05-06 08:00 | NUR ---
ASSESSMENT COMPLETE. PT STATES "I SLEPT THROUGH THE NIGHT AFTER I GOT THE SLEEPING MEDICATION AND DID NOT WAKE UP ONCE AND I WET THE BED". BED IS CHANGED AT THIS TIME AND PT IS CLEANED UP. PT HAS NO COMPLAINTS AT THIS TIME. RESPIRATIONS RELAXED AND REDULAR. CALL LIGHT WITHIN REACH, WILL CONTINUE TO MONITOR
--- NOTE | 2020-05-06 08:16 | NUR ---
DR DOMINGO IN TO SEE PATIENT
--- NOTE | 2020-05-06 08:23 | NUR ---
DR DOMINGO ON FLOOR AND STATES THAT WE ARE WAITING FOR ACCEPTANCE FROM [facility]. WILL WAIT FOR FURTHER ORDERS ON PATIENT
--- NOTE | 2020-05-06 08:32 | NUR ---
Patient has been accepted to [facility] and precert has been started. Waiting for auth.
--- NOTE | 2020-05-06 08:45 | NUR ---
OT NOTE Pt was laying supine in bed with head slightly elevated agreeable to 25 minute OT session. Identified by name and date of with no complaints to date. Prior to start of activities pt was able to verbalize hip precautions with 100% accuracy. Transfer supine to EOB SBA. Sit-stand CGA with w/w for UB support. Functional mobility from EOB to bathroom CGA with w/w for saftey. While walking to bathroom pt presented with mild retrograde posture with modA to correct . Pt showed good carry over for hip precautions. Transferring on and off toilet CGA with w/w and grab bar. Functional mobility from bathroom to recliner CGA with w/w. Pt was educated on dressing stick and sock aide to doff and karen socks. Once demonstrated pt was able to use dressing stick to doff socks at [facility] due to pt reporting " it's my nueropathy". Pt was able to use sock aide to karen socks at [facility] to get sock over the sock aide and assist with sequencing. During donning of socks pt attempted to forward flex past 90 requiring Veral cuesto correct Pts standing balance was challenged by weight shifting in all planes unsupported at CGA with w/w, balance was F- due to retrograde posture requiring modA to correct. Pt was left in recliner with alarm on and call light in reach. Continue d/c recommended to SNF. CRISTIAN Hampton/LUIS M Mathis/Allie
--- NOTE | 2020-05-06 08:49 | NUR ---
PHYSICAL THERAPY TREATMENT TIME: IN 08:20 AM - OUT 08:45 AM 25 MINUTES TOTAL PRESENTATION: Patient presented to therapy in supine with head of bed elevated. Bed Alarm was on No IVs No spO2 COMPLAINTS: 0/10 PAIN IN THE R HIP TRANSFERS: supine to sitting on EOB: SBA- CGA Sit on EOB : SBA STS from EOB: CGA Standing at Walker with hands at the side: Retrograde lean back on heels MOD A X 1 to correct Retrograde lean STS from low chair: CGA-SBA TREATMENT: GAIT with Walker and CGA for 28' x 2. Retrograde LOB X 2 MOD A X 1 to correct Retrograde lean Standing Bilateral Therapeutic exercises x 10 reps each Hip Precautions maintained with ther ex and transfers Standing at Walker ther ex included: MARCHES, HIP ABDUCTION, HEEL RAISES Seated LAQs PATIENT WAS EDUCATED ON HIP PRECAUTIONS VERABLLY AND WITH DEMONSTRATIONS COMPLAINTS POST TREATMENT: No complaints with ther ex or gait HIP PRECAUTIONS: NO HIP FLEXION PAST 90 DEGREES ON R HIP NO INTERNAL ROTATION OF R HIP NO ADDUCTION OF R HIP CONCLUSION: Patient left in bedside chair call light within reach chair alarm tested and attached to patient LEs in low postion tray table in front of patient CANDICE NUNN MAIL EXAMINER
--- NOTE | 2020-05-06 08:51 | NUR ---
SPOKE TO PT DAUGHTER ON THE PHONE
--- NOTE | 2020-05-06 09:03 | NUR ---
PT COMPLAINING OF BURNING WHEN SHE PEES AND WHEN SHE IS JUST SITTING THERE. THERE IS A TOPICAL CREAM THAT IS ORDERED, SO ONCE IT ARRIVES FROM PHARMACY I WILL APPLY IT
[2020-05-06 12:00] VITALS: BP 119/56
--- NOTE | 2020-05-06 12:39 | NUR ---
OT NOTE Pt was laying supine in bed with head slightly elevated trying to eat lunch. Pt agreed to sitting up in chair to finish eating and 10 minute OT session. Identified by name and date of with no complaints to date. Transfer supine to EOB SBA. Sit-stand CGA with w/w. Pt presented with mild retrograde posture when standing requiring Timmy to correct. Functional mobility from EOB to recliner CGA with w/w. Throughout functional mobility pt contimued to present with retrograde posture requiring Timmy to correct. Pt still aware of hip precautions and continues to follow them. Pt left up in recliner to eat lunch with alarm active and call light in reach. Continue d/c recommended SNF. CRISTIAN Hampton/LUIS M Mathis/Allie
[2020-05-06 16:00] VITALS: BP 132/60
[2020-05-06 20:00] VITALS: BP 135/74
--- NOTE | 2020-05-06 20:05 | NUR ---
PT RESTING IN BED. RESP-EASY AND REGULAR. C/O RIGHT LEG PAIN, RATES PAIN 5 ON PAIN SCALE 0-10. MEDICATED WITH ULTRAM PO PER PRN ORDER, SEE EMAR. CALL LIGHT IN REACH. BED ALARM ON.
--- NOTE | 2020-05-06 21:00 | NUR ---
PT RESTING IN BED STATES PAIN MEDICATION HELPED. NO NEW C/O AT THIS TIME. CALL LIGHT IN REACH. BED ALAMR ON.
[2020-05-07] VITALS: BP 141/79
--- NOTE | 2020-05-07 00:10 | NUR ---
PT INCONTINENT OF URINE, BATHED AND NEW DEPENDS ON. NO C/O AT THIS TIME. CALL LIGHT IN REACH. SEE SHIFT ASSESSMENT. BED ALARM ON.
--- NOTE | 2020-05-07 05:22 | NUR ---
PT TOELRATED ROUTINE MED WITH NO PROBLEM. REPOSITIONED SELF IN BED. NO C/O AT THIS TIME. CALL LIGHT IN REACH. BED ALARM ON.
--- NOTE | 2020-05-07 07:54 | NUR ---
Patient has received auth for [facility], hospital exemption has been completed in the [facility] system. Patient can be discharged to [facility] if medically stable for discharge.
[2020-05-07 08:00] VITALS: BP 106/60
--- NOTE | 2020-05-07 08:10 | NUR ---
OT NOTE Pt was sitting up in recliner agreeable to 10 minute Ot session. Identified by name and date of with 4/10 right hip pain. prior to OT session pt was able to recite hip precautions. Sit-stand Timmy due to low rise recliner with use of w/w for UB support. Pt presented with mild retrograde posture when standing requiring Timmy to correct. Functional mobility from recliner to bathroom CGA with w/w. Transferring on and off commode CGA with w/w. verbal cues required to remind pt not to bend over 90 degrees when transferring on and off commode with poor carry over. Pt was able to stand sink side to wash hands with w/w at CGA. Pt presented with left lateral lean when standing at sink requiring Timmy to correct. Functional mobility from bathroom back to recliner CGA with w/w. when sitting in recliner pt was fixing socks with poor carry over by bending past 90 degrees, and crossing legs requiring Timmy to correct. Pt left in recliner with alarm active and call light in reach. Continue d/c to SNF. CRISTIAN Killian/LUIS M Mathis/Allie
--- NOTE | 2020-05-07 08:53 | NUR ---
ROCAEL HELD AT THIS TIME DUE TO BLOOD PRESSURE 106/60. WILL RECHECK LATER.
[2020-05-07] MEDS ORDERED: NATURE'S BLEND F1 MG PO (09:13)
[2020-05-07] MEDS ORDERED: ANTIFUNGAL CREA14 GM T (09:13)
[2020-05-07] MEDS ORDERED: TRAMADOL HCL50 MG PO (09:13)
--- NOTE | 2020-05-07 10:30 | NUR ---
PHYSICAL THERAPY Patient seen this am 1:1 for therapy visit and was resting supine in bed as Physician departed, upon therapist arrival. Patient identified by name / and reports only mild episodes of R hip discomfort. Patient transfers supine to sit EOB, then sit to stand CGA x 1, with use of wh walker standing support, demonstating initial retrograde posture upon slow rise. Patient ambulated 50'x 1, CGA, wh walker, demonstrating slow, cautious gait pattern and needed v/c for increased stride, increased posture with "head up". Patient returned to supine in bed with mild fatigue and remained with call light, tray table, telephone, bed alarm for safety. Will continue per POC as tolerated, total treatment time 16 minutes. Geronimo Helton, SAP BASIS ARCHITECT
--- NOTE | 2020-05-07 10:54 | NUR ---
Patient is discharged to [facility] via [facility] at 12:00 noon. mail carrier and clerk, nursing, NH all notified. Left voicemail for patients daughter on her cell phone. Faxed discharge summary and orders.
--- NOTE | 2020-05-07 11:49 | NUR ---
[facility] HERE AT THIS TIME TO OPERATING ROOM TECHNICIAN PATIENT. HEPLOCK DISCONTINUED. PHOTO TAKEN OF ABOVE RT EYEBROW. REPORT GIVEN TO [facility] NURSE. TAKEN OFF FLOOR VIA STRETCHER.
--- NOTE | 2020-05-07 16:11 | NUR ---
OCCUPATIONAL THERAPY CO-SIGN I approve of the Occupational Therapy notes written above. EDILBERTO CASTANEDA, OTR/L
--- NOTE | 2020-05-08 07:51 | NUR ---
PHYSICAL THERAPY CO-SIGN I approve of the Physical Therapy notes written above. Clarissa Tong PT
== END 2020-05-07 11:49 | disposition other institution (70) | DRG 682 ==
LOC: ED 11:48 → 4E 16:40 → EDHOLD 16:40 → 4E 17:13
PROVIDERS: Emergency Medicine; Hospitalist; ADMIT Internal Medicine; ATTEND Internal Medicine
DX: N17.0 Acute kidney failure with tubular necrosis (principal); E43 Unspecified severe protein-calorie malnutrition; N39.0 Urinary tract infection, site not specified; Z68.1 Body mass index [BMI] 19.9 or less, adult; E86.0 Dehydration; G20 Parkinson's disease; N18.3 Chronic kidney disease, stage 3 (moderate); Z20.828 Contact with and (suspected) exposure to other viral communicable diseases; G62.9 Polyneuropathy, unspecified; Z96.641 Presence of right artificial hip joint; F17.210 Nicotine dependence, cigarettes, uncomplicated; M15.9 Polyosteoarthritis, unspecified; B37.9 Candidiasis, unspecified; S01.111A Laceration without foreign body of right eyelid and periocular area, initial encounter; B96.1 Klebsiella pneumoniae [K. pneumoniae] as the cause of diseases classified elsewhere; Z71.6 Tobacco abuse counseling; Z90.49 Acquired absence of other specified parts of digestive tract; Z90.710 Acquired absence of both cervix and uterus; Z90.722 Acquired absence of ovaries, bilateral; Z87.81 Personal history of (healed) traumatic fracture; Z92.21 Personal history of antineoplastic chemotherapy; Z92.3 Personal history of irradiation; Z98.891 History of uterine scar from previous surgery; Z78.9 Other specified health status; W18.39XA Other fall on same level, initial encounter; Y93.89 Activity, other specified; Y92.89 Other specified places as the place of occurrence of the external cause; Y99.8 Other external cause status

== ENCOUNTER 2020-08-01 12:06 | Emergency (ER) | payer OTHER ==
[~2020-08-01] VITALS: Ht 170.1 cm; Wt 49.9 kg
[~2020-08-01 12:06] MED LIST changes: +ANTIFUNGAL CREA14 GM T; +NATURE'S BLEND F1 MG PO
[2020-08-01 14:16] LABS: BASO % 0.3 % (0.0-1.0); EOS % 0.6 % (1.0-4.0); HEMATOCRIT 40.9 % (37.0-47.0); LYMPH # 1.3 10*3/uL (1.3-4.4); LYMPH % 18.4 % (27.0-41.0); MEAN CORPUSCULAR HGB 24.1 pg (27.0-31.0); MEAN CORPUSCULAR HGB CONC 29.1 g/dl (33.0-37.0); MEAN PLATELET VOLUME 10.5 fl (9.6-12.3); MONO # 0.7 10*3/uL (0.1-1.0); MONO % 9.5 % (3.0-9.0); NEUT # 5.1 10*3/uL (2.3-7.9); NEUT % 70.9 % (47.0-73.0); PLATELET COUNT AUTOMATED 311 10*3/uL (130-400); RED BLOOD COUNT 4.93 10*6/uL (4.10-5.10); RED CELL DISTRI WIDTH 15.9 % (0-14.5); WHITE BLOOD COUNT 7.2 10*3/uL (4.8-10.8)
[2020-08-01 14:27] LABS: ALBUMIN 3.5 gm/dl (3.1-4.5); CREATININE 2.03 mg/dL (0.55-1.02); POTASSIUM 4.1 mmol/L (3.5-5.1)
[2020-08-01 14:33] LABS: BILIRUBIN Negative (Negative); BLOOD 2+ (Negative); CLARITY Turbid (Clear); COLOR Yellow (Yellow); GLUCOSE Negative (Negative); KETONE Negative (Negative); LEUKO ESTERASE 3+ (Negative); NITRITE Negative (Negative); PH 5.5 (4.5-8.0); SPECIFIC GRAVITY 1.015 (1.001-1.030)
[2020-08-01 14:41] LABS: BACTERIA 4+; WBC TNTC wbc/hpf (0-5)
[2020-08-01] MEDS ORDERED: CEFUROXIME AXE250 MG PO (19:26)
== END 2020-08-01 20:07 | disposition home or self-care (01) ==
LOC: ED 12:06
PROVIDERS: Physician Assistant
DX: E86.0 Dehydration (principal); N39.0 Urinary tract infection, site not specified; Z79.899 Other long term (current) drug therapy

== ENCOUNTER 2020-09-28 13:27 | Emergency (ER) | payer OTHER ==
[~2020-09-28] VITALS: Wt 49.9 kg
[~2020-09-28 13:27] MED LIST changes: +CEFUROXIME AXE250 MG PO
[2020-09-28 14:19] LABS: BASO # 0.1 10*3/uL (0.0-0.1); EOS # 0.2 10*3/uL (0.0-0.4); EOS % 2.1 % (1.0-4.0); HEMATOCRIT 44.9 % (37.0-47.0); LYMPH % 27.9 % (27.0-41.0); MEAN CELL VOLUME 80.6 fl (81.0-99.0); MEAN CORPUSCULAR HGB 23.3 pg (27.0-31.0); MONO # 0.5 10*3/uL (0.1-1.0); MONO % 7.5 % (3.0-9.0); NEUT # 4.4 10*3/uL (2.3-7.9); NEUT % 61.1 % (47.0-73.0); PLATELET COUNT AUTOMATED 478 10*3/uL (130-400); RED BLOOD COUNT 5.57 10*6/uL (4.10-5.10); RED CELL DISTRI WIDTH 18.6 % (0-14.5); WHITE BLOOD COUNT 7.2 10*3/uL (4.8-10.8)
[2020-09-28 14:35] LABS: ACT PARTIAL THROMBO TIME 26.6 SECONDS (20.0-32.1)
[2020-09-28 14:39] LABS: ALBUMIN 2.9 gm/dl (3.1-4.5); CREATININE 1.28 mg/dL (0.55-1.02); POTASSIUM 3.2 mmol/L (3.5-5.1); TOTAL PROTEIN 7.6 gm/dL (6.4-8.2)
[2020-09-28 14:40] LABS: TROPONIN I 0.044 ng/ml (<0.045)
[2020-09-28 16:00] LABS: BILIRUBIN Negative (Negative); BLOOD Negative (Negative); CLARITY Cloudy (Clear); COLOR Yellow (Yellow); GLUCOSE Negative (Negative); KETONE Negative (Negative); LEUKO ESTERASE 3+ (Negative); NITRITE Positive (Negative); UROBILINOGEN 0.2 E.U./dl (0.0-1.0)
[2020-09-28 16:14] LABS: BACTERIA 4+; WBC 51-100 wbc/hpf (0-5)
== END 2020-09-28 18:10 | disposition home or self-care (01) ==
LOC: ED 13:27
PROVIDERS: Emergency Medicine
DX: R19.7 Diarrhea, unspecified (principal); E86.0 Dehydration; E87.6 Hypokalemia; R79.1 Abnormal coagulation profile

== ENCOUNTER 2021-09-29 16:05 | Inpatient (IN) | payer OTHER ==
[~2021-09-29] VITALS: Ht 157.4 cm; Wt 46.5 kg
[~2021-09-29 16:05] MED LIST changes: +LEVOFLOXACIN750 M2 PO; +MELATONIN10 M6 PO; +OMNICEF300 MG PO
[2021-09-29 16:11] VITALS: BP 107/61
[2021-09-29 16:35] LABS: BILIRUBIN 1+ (Negative); BLOOD 1+ (Negative); CLARITY Turbid (Clear); COLOR Dark Yellow (Yellow); GLUCOSE Negative (Negative); KETONE Negative (Negative); LEUKO ESTERASE 3+ (Negative); NITRITE Positive (Negative); SPECIFIC GRAVITY 1.015 (1.001-1.030)
[2021-09-29 16:47] LABS: BACTERIA 4+; EPITHELIAL CELLS 16-20; WBC 31-40 wbc/hpf (0-5)
[2021-09-29 17:12] LABS: BASO % 0.2 % (0.0-1.0); HEMATOCRIT 42.2 % (37.0-47.0); LYMPH # 0.7 10*3/uL (1.3-4.4); LYMPH % 5.6 % (27.0-41.0); MEAN CELL VOLUME 85.3 fl (81.0-99.0); MEAN CORPUSCULAR HGB 25.7 pg (27.0-31.0); MEAN CORPUSCULAR HGB CONC 30.1 g/dl (33.0-37.0); MEAN PLATELET VOLUME 10.3 fl (9.6-12.3); MONO # 0.7 10*3/uL (0.1-1.0); MONO % 5.1 % (3.0-9.0); NEUT # 11.8 10*3/uL (2.3-7.9); NEUT % 88.9 % (47.0-73.0); PLATELET COUNT AUTOMATED 441 10*3/uL (130-400); RED BLOOD COUNT 4.95 10*6/uL (4.10-5.10); RED CELL DISTRI WIDTH 16.1 % (0-14.5); WHITE BLOOD COUNT 13.2 10*3/uL (4.8-10.8)
[2021-09-29 17:29] LABS: ALBUMIN 2.8 gm/dl (3.1-4.5); CREATININE 2.05 mg/dL (0.55-1.02); POTASSIUM 4.5 mmol/L (3.5-5.1); TOTAL PROTEIN 7.5 gm/dL (6.4-8.2)
[2021-09-29 17:31] VITALS: BP 110/63
[2021-09-30 03:05] VITALS: BP 108/47
[2021-09-30 06:02] LABS: BASO # 0.1 10*3/uL (0.0-0.1); BASO % 0.5 % (0.0-1.0); EOS # 0.1 10*3/uL (0.0-0.4); EOS % 0.9 % (1.0-4.0); HEMATOCRIT 35.6 % (37.0-47.0); LYMPH # 1.5 10*3/uL (1.3-4.4); LYMPH % 15.4 % (27.0-41.0); MEAN CELL VOLUME 85.6 fl (81.0-99.0); MEAN CORPUSCULAR HGB 25.5 pg (27.0-31.0); MEAN CORPUSCULAR HGB CONC 29.8 g/dl (33.0-37.0); MEAN PLATELET VOLUME 10.3 fl (9.6-12.3); MONO # 0.7 10*3/uL (0.1-1.0); MONO % 7.3 % (3.0-9.0); NEUT # 7.2 10*3/uL (2.3-7.9); NEUT % 75.1 % (47.0-73.0); PLATELET COUNT AUTOMATED 371 10*3/uL (130-400); RED BLOOD COUNT 4.16 10*6/uL (4.10-5.10); RED CELL DISTRI WIDTH 16.3 % (0-14.5); WHITE BLOOD COUNT 9.6 10*3/uL (4.8-10.8)
[2021-09-30 06:18] LABS: ALBUMIN 2.4 gm/dl (3.1-4.5); ALKALINE PHOSPHATASE 72 U/L (45-117); BUN 32 mg/dl (7-24); CHLORIDE 111 mmol/L (98-107); CREATININE 2.01 mg/dL (0.55-1.02); POTASSIUM 4.6 mmol/L (3.5-5.1); SGOT/AST 13 IU/L (3-35); SODIUM 139 mmol/L (136-145)
[2021-09-30 06:19] LABS: TOTAL PROTEIN 6.7 gm/dL (6.4-8.2)
[2021-09-30 06:25] LABS: SGPT/ALT < 6 U/L (12-78)
[2021-09-30 06:43] VITALS: BP 138/87
[2021-09-30 08:00] VITALS: BP 109/54
[2021-09-30 15:00] VITALS: BP 120/53
[2021-09-30 20:00] VITALS: BP 134/50
[2021-10-01] VITALS: BP 132/73
[2021-10-01 02:00] VITALS: BP 169/84
[2021-10-01 02:15] VITALS: BP 145/57
[2021-10-01 06:55] LABS: BASO # 0.1 10*3/uL (0.0-0.1); BASO % 0.7 % (0.0-1.0); EOS # 0.4 10*3/uL (0.0-0.4); EOS % 5.9 % (1.0-4.0); HEMATOCRIT 37.8 % (37.0-47.0); LYMPH # 1.2 10*3/uL (1.3-4.4); LYMPH % 16.5 % (27.0-41.0); MEAN CELL VOLUME 84.9 fl (81.0-99.0); MEAN CORPUSCULAR HGB 28.3 pg (27.0-31.0); MEAN CORPUSCULAR HGB CONC 33.3 g/dl (33.0-37.0); MEAN PLATELET VOLUME 10.6 fl (9.6-12.3); MONO # 0.4 10*3/uL (0.1-1.0); MONO % 4.9 % (3.0-9.0); NEUT # 5.3 10*3/uL (2.3-7.9); NEUT % 71.7 % (47.0-73.0); PLATELET COUNT AUTOMATED 397 10*3/uL (130-400); RED BLOOD COUNT 4.45 10*6/uL (4.10-5.10); RED CELL DISTRI WIDTH 15.9 % (0-14.5); WHITE BLOOD COUNT 7.3 10*3/uL (4.8-10.8)
[2021-10-01 07:09] LABS: CREATININE 1.32 mg/dL (0.55-1.02)
[2021-10-01 07:10] LABS: POTASSIUM 3.6 mmol/L (3.5-5.1)
[2021-10-01 08:00] VITALS: BP 116/54
[2021-10-01] MEDS ORDERED: OMNICEF300 MG PO (11:16)
[2021-10-01 12:00] VITALS: BP 176/82
== END 2021-10-01 14:26 | disposition home health service (06) | DRG 871 ==
LOC: ED 16:05 → 5E 19:57 → EDHOLD 19:57 → 5E 09-30 12:20
PROVIDERS: Hospitalist; Internal Medicine; Physician Assistant; ADMIT Internal Medicine; ATTEND Internal Medicine
DX: A41.9 Sepsis, unspecified organism (principal); G93.41 Metabolic encephalopathy; N30.01 Acute cystitis with hematuria; E44.0 Moderate protein-calorie malnutrition; N18.4 Chronic kidney disease, stage 4 (severe); K92.2 Gastrointestinal hemorrhage, unspecified; G91.2 (Idiopathic) normal pressure hydrocephalus; Z68.1 Body mass index [BMI] 19.9 or less, adult; R65.20 Severe sepsis without septic shock; F17.210 Nicotine dependence, cigarettes, uncomplicated; F03.90 Unspecified dementia, unspecified severity, without behavioral disturbance, psychotic disturbance, mood disturbance, and anxiety; G20 Parkinson's disease; R73.9 Hyperglycemia, unspecified; D75.839 Thrombocytosis, unspecified; Z90.710 Acquired absence of both cervix and uterus; Z98.891 History of uterine scar from previous surgery

== ENCOUNTER → 2023-06-06 | Outpatient (CLI) | payer OTHER ==
[~2023-06-06] MED LIST changes: +ASPIRIN ADULT L81 M2 PO; +HYDROCODONE-AC1 EAC1 PO; +VITAMIN D350 MCG PO
== END | disposition home or self-care (01) ==
LOC: ORTHO 01:25
PROVIDERS: ATTEND Orthopaedic Surgery
DX: S72.012D Unspecified intracapsular fracture of left femur, subsequent encounter for closed fracture with routine healing (principal); M81.0 Age-related osteoporosis without current pathological fracture; X58.XXXD Exposure to other specified factors, subsequent encounter

== ENCOUNTER → 2023-07-08 | Outpatient (CLI) | payer OTHER | END | disposition home or self-care (01) | LOC: ORTHO 00:44 | PROVIDERS: ATTEND Orthopaedic Surgery | DX: S72.012D Unspecified intracapsular fracture of left femur, subsequent encounter for closed fracture with routine healing (principal); X58.XXXD Exposure to other specified factors, subsequent encounter ==

== ENCOUNTER 2023-08-04 10:11 | Emergency (ER) | payer OTHER ==
[~2023-08-04] VITALS: Ht 160 cm; Wt 45.4 kg
== END 2023-08-04 14:08 | disposition home or self-care (01) ==
LOC: ED 10:11
DX: K59.00 Constipation, unspecified (principal); M19.90 Unspecified osteoarthritis, unspecified site; J44.9 Chronic obstructive pulmonary disease, unspecified; Z90.89 Acquired absence of other organs; Z90.49 Acquired absence of other specified parts of digestive tract; Z90.710 Acquired absence of both cervix and uterus; Z98.890 Other specified postprocedural states; F17.200 Nicotine dependence, unspecified, uncomplicated

== ENCOUNTER 2023-09-17 11:45 | Emergency (ER) | payer OTHER ==
[~2023-09-17] VITALS: Ht 160 cm; Wt 46.3 kg
[~2023-09-17 11:45] MED LIST changes: +ATORVASTATIN CA40 M1 PO; +CEPHALEXIN500 M1 PO; +DEBROX15 ML OT; +MIRALAX17 GM PO; +OFLOXACIN 10 ML10 M2 OT
[2023-09-17 15:23] LABS: BASO # 0.1 10*3/uL (0.0-0.1); BASO % 1.1 % (0.0-1.0); EOS # 0.3 10*3/uL (0.0-0.4); EOS % 4.6 % (1.0-4.0); HEMATOCRIT 45.4 % (37.0-47.0); LYMPH # 1.9 10*3/uL (1.3-4.4); LYMPH % 34.1 % (27.0-41.0); MEAN CELL VOLUME 91.2 fl (81.0-99.0); MEAN CORPUSCULAR HGB 26.1 pg (27.0-31.0); MEAN CORPUSCULAR HGB CONC 28.6 g/dl (33.0-37.0); MEAN PLATELET VOLUME 10.7 fl (9.6-12.3); MONO # 0.4 10*3/uL (0.1-1.0); MONO % 7.9 % (3.0-9.0); NEUT # 2.9 10*3/uL (2.3-7.9); NEUT % 51.9 % (47.0-73.0); PLATELET COUNT AUTOMATED 343 10*3/uL (130-400); RED BLOOD COUNT 4.98 10*6/uL (4.10-5.10); RED CELL DISTRI WIDTH 14.8 % (0-14.5); WHITE BLOOD COUNT 5.6 10*3/uL (4.8-10.8)
[2023-09-17 15:49] LABS: ALKALINE PHOSPHATASE 94 U/L (46-116); BUN 17 mg/dl (9-23); CHLORIDE 106 mmol/L (98-107); POTASSIUM 4.3 mmol/L (3.4-5.1); TOTAL PROTEIN 8.1 gm/dL (6.0-8.0)
[2023-09-17 15:50] LABS: SGPT/ALT < 7 U/L (5-49)
[2023-09-18] MEDS ORDERED: TRAMADOL HCL50 MG PO (09:20)
[2023-09-18] MEDS ORDERED: DULCOLAX10 M1 R ×2 (10:20)
[2023-09-18] MEDS ORDERED: [UNRECOGNIZED DRUG - OTHER] PO (10:20)
== END 2023-09-17 21:31 | disposition left against medical advice (07) ==
LOC: ED 11:45
PROVIDERS: Family Medicine
DX: K59.00 Constipation, unspecified (principal); G20.A1 Parkinson's disease without dyskinesia, without mention of fluctuations; F17.200 Nicotine dependence, unspecified, uncomplicated; Z79.899 Other long term (current) drug therapy; Z79.82 Long term (current) use of aspirin; Z98.890 Other specified postprocedural states; Z96.641 Presence of right artificial hip joint; Z90.89 Acquired absence of other organs; Z90.711 Acquired absence of uterus with remaining cervical stump; Z90.49 Acquired absence of other specified parts of digestive tract

== ENCOUNTER 2023-09-18 09:08 | Emergency (ER) | payer OTHER ==
[~2023-09-18] VITALS: Ht 160 cm; Wt 45.8 kg
[2023-09-18] MEDS ORDERED: TRAMADOL HCL50 MG PO (09:20)
[2023-09-18] MEDS ORDERED: [UNRECOGNIZED DRUG - OTHER] PO (10:20)
[2023-09-18] MEDS ORDERED: DULCOLAX10 M1 R ×2 (10:20)
== END 2023-09-18 10:23 | disposition home or self-care (01) ==
LOC: ED 09:08
DX: K59.00 Constipation, unspecified (principal); J44.9 Chronic obstructive pulmonary disease, unspecified; M19.90 Unspecified osteoarthritis, unspecified site; Z90.89 Acquired absence of other organs; Z90.49 Acquired absence of other specified parts of digestive tract; Z98.890 Other specified postprocedural states; Z90.710 Acquired absence of both cervix and uterus; F17.200 Nicotine dependence, unspecified, uncomplicated

== ENCOUNTER 2023-09-20 12:17 | Emergency (ER) | payer OTHER ==
[~2023-09-20] VITALS: Ht 154.9 cm; Wt 45.8 kg
[~2023-09-20 12:17] MED LIST changes: +DULCOLAX10 M1 R; +[UNRECOGNIZED DRUG - OTHER] PO
== END 2023-09-20 20:04 | disposition home or self-care (01) ==
LOC: ED 12:17
DX: K59.00 Constipation, unspecified (principal); J44.9 Chronic obstructive pulmonary disease, unspecified; M19.90 Unspecified osteoarthritis, unspecified site; Z90.49 Acquired absence of other specified parts of digestive tract; Z90.710 Acquired absence of both cervix and uterus; Z90.89 Acquired absence of other organs; Z98.890 Other specified postprocedural states; F17.200 Nicotine dependence, unspecified, uncomplicated

== ENCOUNTER → 2023-11-29 | Outpatient (CLI) | payer OTHER | END | disposition home or self-care (01) | LOC: RAD 15:18 | PROVIDERS: ATTEND Physician Assistant | DX: M43.17 Spondylolisthesis, lumbosacral region (principal); M47.817 Spondylosis without myelopathy or radiculopathy, lumbosacral region; M17.11 Unilateral primary osteoarthritis, right knee; M25.862 Other specified joint disorders, left knee; M25.861 Other specified joint disorders, right knee; M79.604 Pain in right leg; M79.605 Pain in left leg; Z96.641 Presence of right artificial hip joint ==

== ENCOUNTER 2023-11-30 06:36 | Emergency (ER) | payer OTHER ==
[~2023-11-30] VITALS: Ht 160 cm; Wt 42.4 kg
[2023-11-30] MEDS ORDERED: HYDROCODONE-AC1 EAC1 PO (06:51)
[2023-11-30] MEDS ORDERED: Labetalol Hydrochloride 20 MG/4 ML SYR IV ONE (07:20)
[2023-11-30 10:24] LABS: HEMATOCRIT 42.4 % (37.0-47.0); MEAN CELL VOLUME 87.1 fl (81.0-99.0); MEAN CORPUSCULAR HGB 25.7 pg (27.0-31.0); MEAN CORPUSCULAR HGB CONC 29.5 g/dl (33.0-37.0); MEAN PLATELET VOLUME 10.1 fl (9.6-12.3); PLATELET COUNT AUTOMATED 374 10*3/uL (130-400); RED BLOOD COUNT 4.87 10*6/uL (4.10-5.10); WHITE BLOOD COUNT 7.8 10*3/uL (4.8-10.8)
[2023-11-30 10:25] LABS: MANUAL DIFF REFLEX YES
[2023-11-30 10:34] LABS: ACT PARTIAL THROMBO TIME 28.2 SECONDS (20.0-32.1)
[2023-11-30 10:47] LABS: ALKALINE PHOSPHATASE 97 U/L (46-116); BUN 35 mg/dl (9-23); CHLORIDE 103 mmol/L (98-107); TOTAL PROTEIN 8.8 gm/dL (6.0-8.0)
[2023-11-30 10:49] LABS: ATYPICAL LYMPHS 1 % (0-0); PLATELET SUFFICIENCY NORMAL (NORMAL); SGPT/ALT < 7 U/L (5-49); TOTAL CELLS COUNTED 100 #CELLS; TOXIC GRANULATION SLIGHT; VACUOLATION OF NEUTROPHILS SLIGHT
[2023-11-30 10:50] LABS: BURR CELLS FEW; OVALOCYTES FEW; POLYCHROMASIA SLIGHT; ROULEAUX SLIGHT
[2023-11-30] MEDS ORDERED: HEPARIN SODIUM 250 ML IV SCH (10:50)
[2023-11-30] MEDS ORDERED: MORPHINE Sulfate 2 MG/ML SYR IV ONE (11:05)
[2023-11-30] MEDS ORDERED: SODIUM CHLORIDE 0.9% 1,000 ML IV ONE (11:40)
== END 2023-11-30 15:33 | disposition short-term general hospital (02) ==
LOC: ED 06:36
PROVIDERS: Internal Medicine
DX: I73.9 Peripheral vascular disease, unspecified (principal); J44.9 Chronic obstructive pulmonary disease, unspecified; M19.90 Unspecified osteoarthritis, unspecified site